=== PATIENT | female | born 1965 | race Caucasian/White ===

== ENCOUNTER 2017-11-20 15:27 | Emergency (ER) | payer OTHER ==
[2017-11-20] MEDS: LIDOCAINE 4% CR TOP (16:36)
== END 2017-11-20 16:42 | disposition home or self-care (01) ==
LOC: FTE 15:27
DX: B00.1 Herpesviral vesicular dermatitis (principal); I10 Essential (primary) hypertension
CPT/HCPCS: 99283; Z7502

== ENCOUNTER 2017-11-22 13:39 | Emergency (ER) | payer OTHER ==
[2017-11-22 14:05] LABS: URINE BLOOD (Dip) POC 2+ (NEGATIVE); URINE GLUCOSE (Dip) POC Negative (NEGATIVE); URINE KETONES (Dip) POC Trace (NEGATIVE); URINE LEUKOCYTE EST (Dip) POC Trace (NEGATIVE); URINE NITRITE (Dip) POC Negative (NEGATIVE); URINE TOTAL PROTEIN POC 2+ (NEGATIVE)
[2017-11-22 14:09] LABS: ADD MAN DIFF? NO
[2017-11-22] MEDS: SOD CHLORIDE 0.9% 500 ML IV (14:09)
[2017-11-22] MEDS: KETOROLAC 30 MG INJ IV (14:09)
[2017-11-22 14:11] LABS: BASOPHILS % 0.5 % (0.0-2.0); EOSINOPHILS # 0.2 10^3/ul (0.0-0.5); EOSINOPHILS % 1.9 % (0.0-7.0); HEMATOCRIT 34.8 % (37.0-47.0); HEMOGLOBIN 10.5 g/dl (12.0-16.0); LYMPHOCYTES # 2.2 10^3/ul (0.8-2.9); LYMPHOCYTES % 27.3 % (15.0-51.0); MEAN CORPUSCULAR HEMOGLOBIN 21.8 pg (29.0-33.0); MEAN CORPUSCULAR HGB CONC 30.2 g/dl (32.0-37.0); MEAN CORPUSCULAR VOLUME 72.2 fl (82.0-101.0); MEAN PLATELET VOLUME 9.7 fl (7.4-10.4); MONOCYTE # 0.4 10^3/ul (0.3-0.9); MONOCYTES % 5.5 % (0.0-11.0); NEUTROPHIL # 5.1 10^3/ul (1.6-7.5); NEUTROPHILS % 64.5 % (39.0-77.0); PLATELET COUNT 329 10^3/UL (140-415); RED BLOOD COUNT 4.82 10^6/ul (4.20-5.40)
[2017-11-22 14:11] LABS: WHITE BLOOD COUNT 7.9 10^3/ul (4.8-10.8)
== END 2017-11-22 15:29 | disposition home or self-care (01) ==
LOC: E/R 13:39
DX: N95.0 Postmenopausal bleeding (principal); I10 Essential (primary) hypertension; R10.2 Pelvic and perineal pain
CPT/HCPCS: 36415; 76856; 81003; 81025; 85025; 96374; 99285-25